=== PATIENT | female | born 1960 | race American Indian/Alaskan Native ===

== ENCOUNTER 2017-04-22 10:44 | Outpatient (CLI) | payer OTHER ==
--- NOTE | 2017-04-22 11:14 | Mammography Report ---
BILATERAL MAMMOGRAM with CAD: HISTORY:Cancer screening. Comparison study is dated January 20, 2016. FINDINGS: The breasts are almost entirely fat (<25% glandular). No mass, distortion, suspicious calcification, or skin change is seen. IMPRESSION: Negative mammogram. There is no mammographic evidence of malignancy. RECOMMENDATION: Follow-up per ACS guidelines. BI-RADS CATEGORY: 1 = Negative ACR BI-RADS MAMMOGRAPHIC CODES: 0 = Needs additional imaging evaluation; 1 = Negative; 2 = Benign; 3 = Probably benign; 4 = Suspicious; 5 = Malignant; 6 = Known biopsy-proven malignancy COMMENT: 1. Dense breast tissue, i.e., adenosis, fibrocystic changes, etc., may obscure an underlying neoplasm. 2. Approximately 10% of cancers are not detected with mammography. 3. A negative mammography report should not delay biopsy if a clinically suspicious mass is present. COMMENT: Patient follow-up letters are generated in [employer].
== END 2017-04-22 10:45 | disposition home or self-care (01) ==
LOC: MAMMO 10:44
PROVIDERS: ATTEND Nurse Practitioner Family
DX: Z12.31 Encounter for screening mammogram for malignant neoplasm of breast (principal)
CPT/HCPCS: 77067; G0202

== ENCOUNTER 2019-08-21 07:19 | Outpatient (CLI) | payer OTHER ==
--- NOTE | 2019-08-22 09:19 | Mammography Report ---
DIGITAL SCREENING MAMMOGRAM WITH CAD, 08/21/2019 INDICATION: Routine screening mammography. TECHNIQUE: Digital bilateral 2D mammography was obtained in the craniocaudal and mediolateral obliq ue projections. This examination was interpreted with the benefit of Computer-Aided Detection analysi s. COMPARISON: 08/18/18 FINDINGS: Breast Density: The breasts are almost entirely fatty. There is no evidence of dominant mass, suspicious calcifications or architectural distortion in eithe r breast. IMPRESSION: No mammographic evidence of malignancy. Follow up recommendation: Routine yearly BI-RADS Category 1: Negative. A "normal" or negative report should not discourage follow up or biopsy of a clinically significant f inding. A written summary of these findings will be mailed to the patient. The patient will be entered into a mammography reporting system which will generate a reminder letter for the patient's next appointmen t at the appropriate interval. The [employer] recommends yearly mammograms starting at age 40 and continuing as l iveth as a woman is in good health. Breast MRI is recommended for women with an approximate 20-25% or greater lifetime risk of breast cancer, including women with a strong family history of breast or ova ana maria cancer or who have been treated for Hodgkin's disease. Signer Name: Bipin Ortez MD Signed: 08/22/2019 9:14 AM Workstation Name: [id number]
== END 2019-08-21 07:20 | disposition home or self-care (01) ==
LOC: MAMMO 07:19
PROVIDERS: ATTEND Nurse Practitioner Family
DX: Z12.31 Encounter for screening mammogram for malignant neoplasm of breast (principal)
CPT/HCPCS: 77067

== ENCOUNTER 2019-08-26 09:31 | Emergency (ER) | payer OTHER ==
[2019-08-26 09:41] VITALS: BP 129/82
--- NOTE | 2019-08-26 10:41 | Emergency Department Report ---
Chief Complaint: Extremity Injury, Lower Stated Complaint: LEFT LEG PAIN Time Seen by Provider: 08/26/19 10:38 - HPI History of Present Illness: Mrs. Dunn has had left foot pain for one week. Feels like a strain at the sole of foot to heel. no trauma. no swelling no redness. Suspect plantar fasciitis. Referred to curator. No evidence of gouty arthropathy, fracture, cellulitis, peripheral vascular disease or DVT. No evidence of acute emergent condition. Medical screening exam performed. I provide extensive verbal education. - Exam Vital Signs: Vital Signs 08/26/19 09:35 Temperature 97.6 F Pulse Rate 76 Respiratory 18 Rate Blood Pressure 129/82 O2 Sat by Pulse 99 Oximetry MSE screening note: Focused history and physical exam performed. Due to findings the following was ordered: ED Disposition for MSE Clinical Impression: Encounter for medical screening examination Disposition: MED SCREENING EXAM-LEFT Is pt being admited?: No Does the pt Need Aspirin: No Condition: Stable Instructions: Plantar Fasciitis (ED) Referrals: DANELLE HUERTA DPM [Staff Physician] - 3-5 Days Forms: Work/School Release Form(ED)
== END 2019-08-26 10:50 | disposition left against medical advice (07) ==
LOC: ED 09:31
DX: M79.672 Pain in left foot (principal)
CPT/HCPCS: 99282